=== PATIENT | male | born 1950 | race Caucasian/White ===

== ENCOUNTER 2022-12-03 11:06 | Observation (INO) | payer MEDICARE, SELFPAY ==
[2022-12-03] VITALS (38 sets, daily range): BP systolic 124–154; BP diastolic 64–91; PULSE 66–88; RESP 10–22; TEMP 35.7–37; O2SAT 93–100; BMI 27.5
--- NOTE | ~2022-12-03 | XR_ITS ---
XR chest 2V 12/03/2022 12:06 Indication: Chest pain Procedure: PA and lateral views of the chest Comparison: No prior studies for comparison. Findings: Heart size normal. No focal air space disease, pulmonary edema, pleural effusion or suspect ed pneumothorax. No acute osseous abnormality. Prominent bilateral nipple shadows. Impression: 1: No acute cardiopulmonary disease. Reviewed, dictated and finalized at location L. NER SUPERVISOR Impression: 1: No acute cardiopulmonary disease.
--- NOTE | 2022-12-03 11:11 | ECG_ITS ---
Measurements Intervals [place] Rate: 71 P: MS: 0 QRS: -78 QRSD: 154 T: 25 QT: 394 QTc: 428 Interpretive Statements SINUS RHYTHM WITH PREMATURE ATRIAL COMPLEXES LEFT AXIS DEVIATION [QRS AXIS < -30] RIGHT BUNDLE BRANCH BLOCK [120+ ms QRS DURATION, UPRIGHT V1, 40+ ms S IN I/aVL/V4/V5/V6] ANTEROSEPTAL MYOCARDIAL INFARCTION , OF INDETERMINATE AGE [40+ ms Q WAVE IN V1-V4] NO PREVIOUS ECG AVAILABLE FOR COMPARISON Electronically Signed On 12-03-2022 11:39:[address] MANAGER by Natacha Langston M.D.
[2022-12-03 11:25] LABS: Basophils Percent Auto 0.5 % (0.2-1.2); Eosinophils Absolute Auto 0.3 K/mm3 (0-0.3); Eosinophils Percent Auto 4.1 % (0-4.4); Hematocrit 37.7 % (42.0-52.0); Hemoglobin 13.1 g/dL (14.0-18.0); Immature Granulocyte Absolute 0.01 K/mm3 (0.00-0.031); Immature Granulocyte Percent A 0.1 % (0-0.5); Lymphocytes Absolute Auto 2.64 K/mm3 (0.9-3.2); Mean Corpuscular HGB Conc 34.7 g/dl (32-36); Mean Platelet Volume 9.4 fl (7.4-10.4); Monocytes Absolute Auto 0.5 K/mm3 (0.1-0.6); Monocytes Percent Auto 6.8 % (2.6-8.5); Neutrophils Absolute Auto 3.9 K/mm3 (1.3-6.7); Neutrophils Percent Auto 52.5 % (45.5-73.1); Platelet Count Result 193 k/mm3 (150-375); Red Cell Distribution Width 12.4 % (11.5-14.5); White Blood Count 7.3 K/mm3 (4.5-10.0)
[2022-12-03 11:35] LABS: Alanine Aminotransferase 20 U/L (6-50); Albumin Level 4.4 g/dL (3.5-5.1); Alkaline Phosphatase 62 U/L (38-126); Anion Gap 5 mmol/L (8-16); Aspartate Amino Transferase 23 U/L (17-59); Bilirubin,Total 0.8 mg/dL (0.2-1.3); Blood Urea Nitrogen 12 mg/dL (9-20); Calcium 9.3 mg/dL (8.4-10.2); Carbon Dioxide 27 mmol/L (22-30); Chloride 102 mmol/L (98-107); Estimated CRCL calculation 62 ml/min; Estimated Glomerular Filt Rate > 60; Glucose 201 mg/dL (65-110); Lipase 36 U/L (23-300); Potassium 3.9 mmol/L (3.4-5.0); Sodium 134 mmol/L (137-145)
[2022-12-03 11:42] LABS: INR 1.1; Prothrombin Time 13.9 Seconds (11.1-14.7)
[2022-12-03 11:43] LABS: Partial Thromboplastin Time 29.6 SECONDS (22.3-36.8)
[2022-12-03 11:46] LABS: Troponin I < 0.012 ng/mL (0.000-0.034)
--- NOTE | 2022-12-03 13:39 | ED.CHESTPAIN ---
HPI - Chest Pain General Chief Complaint: Chest Pain Stated Complaint: chest pain and pressure into neck Time Seen by Provider: 12/03/22 12:40 History of Present Illness HPI narrative: Patient is a 72-year-old male with a history of CAD status post 1 stent, hypertension, diabetes, hyperlipidemia presenting with chest pain. Patient states that he developed left-sided chest pressure that radiated into his left neck associated with severe lightheadedness and nausea. States that he was trying to move some furniture with his friend but he became so lightheaded that he had to sit down. The pain lasted for approximately 30 to 40 minutes so his friend made him come in for evaluation. Currently, the patient states that his pain has resolved. He denies shortness of breath. No recent fevers or chills, headache, numbness or weakness, abdominal pain, leg swelling. Related Data Home Medications Medication Instructions Recorded Confirmed aspirin 81 mg capsule,delayed 81 mg PO DAILY 12/03/22 12/03/22 release atorvastatin 80 mg tablet 80 mg PO HS 12/03/22 12/03/22 calcium carb-ergocalciferol (vit 2 tablet PO DAILY 12/03/22 12/03/22 D2) 600 mg calcium-200 unit tablet carvedilol 6.25 mg tablet 6.25 mg PO BID 12/03/22 12/03/22 emtricitabine 200 mg-tenofovir 1 tablet PO HS 12/03/22 12/03/22 alafenamide fumarate 25 mg tablet (Descovy) metformin 500 mg tablet,extended 1,000 mg PO BID 12/03/22 12/03/22 release 24 hr Allergies Allergy/AdvReac Type Severity Reaction Status Date / Time No Known Allergies Allergy Verified 12/03/22 15:41 Review of Systems Review of Systems: All systems reviewed & are unremarkable except as noted in HPI and below PMFSH Past Medical History Medical History Coronary artery disease Hypertension Kidney stones Type 2 diabetes mellitus Surgical History Surgical History History of cardiac catheterization History of cholecystectomy History of coronary artery stent placement Family History Family History Mother Dementia Father Hypertension Diabetes mellitus Depression Social History Social History Social History: Surrogate medical decision maker: Blayne Carlos, son. Code status: Full code. Smoking status: Never smoker Alcohol intake: never Substance use: never Lack of Transportation: No Lack of Food: Never True Current Housing: I Have Housing Concerned About Future Housing: No Difficulty Paying Gas/Electric Bills: No Difficulty Paying for Meds: No Currently Unemployed: No Education: Master's Degree or Higher Difficulty w/ Childcare or Family Care: No Additional living arrangements comments: Lives alone in [place]. 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 Spiritual care concerns: No Exam Narrative: GENERAL: Well-appearing, well-nourished, and in no acute distress. HEAD: Normocephalic, atraumatic. EYES: PERRLA and EOMI. ENT: Nares clear, no rhinorrhea or epistaxis. Mucous membranes moist. NECK: Supple. CHEST: Clear to auscultation. No respiratory distress. HEART: Regular rate and rhythm. No murmur heard. Normal peripheral pulses. ABDOMEN: Soft, nontender, nondistended EXTREMITIES: Normal range of motion. No edema. SKIN: Warm, dry, no rash. NEURO: No focal deficits. Alert and oriented x3. PSYCH: Normal mood and affect. Course Vital Signs Vital signs: Vital Signs Temperature 98.6 F 12/03/22 11:11 Pulse Rate 74 12/03/22 11:11 Respiratory Rate 14 12/03/22 11:11 Blood Pressure 138/91 H 12/03/22 11:11 Pulse Oximetry 93 12/03/22 11:11 Oxygen Delivery Room Air 12/03/22 11:11 Temperature 97.6 F 12/04/22 16:00 Pulse Rate 63 12/04/22 16:00 Respiratory Rate
--- NOTE | 2022-12-03 14:45 | PM.IMHP ---
H&P: HPI History of Present Illness Date/Time: 12/03/22 14:45 Chief Complaint: Chest pain. Narrative: This is a very pleasant 72-year-old male with coronary artery disease and history of stent about 4 to 5 years ago who presented to the emergency department via EMS for evaluation of chest pain which started about 20 minutes prior to arrival. Patient provides the following history. 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 Not long prior to arrival simply while standing he developed left anterior chest pressure radiating to the shoulder, neck, and jaw associated with some lightheadedness and nausea. He initially thought that perhaps his blood pressure had dropped as he had just been bending over to pick something up however the symptoms did not resolve within 30 minutes and he came in for evaluation. By the time he got to the emergency department the chest pressure had resolved without intervention and has not recurred. He has not had any issues with exertional chest pain or shortness of breath and reports that he has done quite a bit of heavy lifting and furniture moving recently, cleaning out his father's home who in September. Vital signs were stable on arrival to the emergency department. Troponin trends thus far: less than 0.012 --> 0.019 --> 0.032. EKG showed a sinus rhythm with PACs, left axis deviation, right bundle-branch block, and Q-waves in V1 through V4. He is being admitted in this setting for overnight monitoring and Cardiology consultation. Of note the patient had his cardiac catheterization done at [facility] and his advanced practice psychiatric nurse is affiliated with [facility]. He has not had a recent echocardiogram or stress test. Review of Systems Review of Systems: Twelve systems were reviewed. He denies fever, chills, and sweats. He broke a left upper tooth about a week or so ago and developed pain the day after, is currently on amoxicillin for possible infection though his symptoms have completely resolved. [facility] Past Medical History Medical History (Updated 12/03/22 @ 22:50 by Chelsea Kebede PA-C) Coronary artery disease Hypertension Kidney stones Type 2 diabetes mellitus Surgical History Surgical History (Updated 12/03/22 @ 22:45 by Chelsea Kebede PA-C) History of cardiac catheterization History of cholecystectomy History of coronary artery stent placement Family History Family History Mother Dementia Father Hypertension Diabetes mellitus Depression Social History Social History (Updated 12/03/22 @ 22:46 by Chelsea Kebede PA-C) Social History: Surrogate medical decision maker: Blayne Carlos, son. Code status: Full code. Smoking status: Never smoker Alcohol intake: never Substance use: never Lack of Transportation: No Lack of Food: Never True Current Housing: I Have Housing Concerned About Future Housing: No Difficulty Paying Gas/Electric Bills: No Difficulty Paying for Meds: No Currently Unemployed: No Education: Master's Degree or Higher Difficulty w/ Childcare or Family Care: No Additional living arrangements comments: Lives alone in [place]. 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 Spiritual care concerns: No Meds Home Medications and Allergies Home Medications Medication Instructions Recorded Confirmed Type aspirin 81 mg capsule,delayed 81 mg PO DAILY 12/03/22 12/03/22 History release atorvastatin 80 mg tablet 80 mg PO HS 12/03/22 12/03/22 History calcium carb-ergocalciferol (vit 2 tablet PO DAILY 12/03/22 12/03/22 History D2) 600 mg calcium-200 unit tablet carvedilol 6.25 mg tablet 6.25 mg PO BID 12/03/22 12/03/22 History emtricitabine 200 mg-tenofovir 1 tablet PO HS 12/03/22 12/03/22 History alafenamide fumarate
[2022-12-03 14:51] LABS: Troponin I 0.019 ng/mL (0.000-0.034)
--- NOTE | 2022-12-03 16:27 | ADMGEN ---
This patient, Demetrius Carlos, was admitted to IMU Room 203-01 at 1626. Patient/family oriented to hospital policies and general routines including ID bracelet, bed and alarms, visiting hours, pain management, procedures, bathroom and other care routines, personal items, smoking policy, room service/diet, and visiting hours. Information on how to activate the Rapid Response Team has been discussed. Patient/Family are encouraged to report perceived risks to care and to ask questions if they do not understand what they are told or what they should do.
[2022-12-03 16:39] LABS: Glucose Point of Care 151 mg/dl (65-105)
[2022-12-03 18:00] LABS: Troponin I 0.032 ng/mL (0.000-0.034)
[2022-12-03] MEDS: carvediloL 6.25 MG TABLET PO (20:25)
[2022-12-03] MEDS: ATORVASTATIN 40 MG TABLET 80 MG PO (20:25)
[2022-12-04] VITALS (10 sets, daily range): BP systolic 144–147; BP diastolic 60–85; PULSE 62–88; RESP 16–20; TEMP 36.3–36.7; O2SAT 95–99
[2022-12-04 05:01] LABS: Hematocrit 37.8 % (42.0-52.0); Mean Corpuscular HGB Conc 34.4 g/dl (32-36); Mean Corpuscular Hemoglobin 32.6 pg (26-34); Mean Corpuscular Volume 94.7 fl (80-100); Mean Platelet Volume 9.8 fl (7.4-10.4); Platelet Count Result 155 k/mm3 (150-375); Red Blood Count 3.99 M/mm3 (4.6-6.20); Red Cell Distribution Width 12.3 % (11.5-14.5); White Blood Count 5.3 K/mm3 (4.5-10.0)
[2022-12-04 05:16] LABS: Anion Gap 5 mmol/L (8-16); Blood Urea Nitrogen 11 mg/dL (9-20); Calcium 8.9 mg/dL (8.4-10.2); Carbon Dioxide 24 mmol/L (22-30); Chloride 104 mmol/L (98-107); Estimated CRCL calculation 68 ml/min; Estimated Glomerular Filt Rate > 60; Glucose 175 mg/dL (65-110); Magnesium 1.8 mg/dL (1.6-2.3); Potassium 3.9 mmol/L (3.4-5.0); Sodium 133 mmol/L (137-145)
[2022-12-04 05:21] LABS: Hemoglobin A1C 7.2 % (<5.7)
[2022-12-04] MEDS: carvediloL 6.25 MG TABLET PO (08:32)
[2022-12-04] MEDS: ASPIRIN 81 MG ENTERIC TABLET PO (08:33)
[2022-12-04] MEDS: ENOXAPARIN 40 MG/0.4 ML SYRINGE SUB-Q (08:34)
--- NOTE | 2022-12-04 08:57 | PM.CNCAR ---
Assessment and Plan Assessment and plan (1) Chest pain: Code(s): R07.9 - Chest pain, unspecified Status: Acute Assessment and Plan: Somewhat atypical with associated lightheadedness lasting 30-45 minutes then stopping spontaneously. Troponin a slight increase but yet remain negative without recurrent symptoms. Patient has a longstanding history of CAD with remote myocardial infarction and prior stent implantation proximally 4-5 years ago without interval symptoms or complications. Patient denies decline in activity tolerance, exertional dyspnea or chest pain at any point. EKG is abnormal but unchanged this hospitalization but without a prior for comparison. Patient feels very well and has no other complaints and is interested in being discharged to follow-up with his hand splitter at [facility] as an outpatient near his home. BP is stable but elevated. Discussed at great length plan of care. Initial plan was for noninvasive ischemic evaluation, however, as patient was not kept NPO and had already eaten unable to proceed at this time. at this time, no indication for invasive coronary angiography particular as patient is asymptomatic. Mildly discussed many options I recommended repeat troponin to establish trend as well as repeat ECG to assess for any evolutionary changes. I have also recommended a 2D echocardiogram to assess LV size/ function, wall motion abnormalities, valve pathology pulmonary pressures. If no unexpected LV dysfunction, troponin is down trending and remains negative and no new concerning ischemic changes by ECG along with asymptomatic status with ambulation regional for patient be discharged home later today follow up with his hand splitter back home in the next week for recommended ischemic evaluation. Given persistence elevation his blood pressure would recommend addition of ANA MARÍA-inhibitor therapy, continuation carvedilol. Patient is at elevated risk given his history of CAD, prior marked compression, diabetes mellitus. Check lipid panel. Recommendations to follow after review of echocardiogram. (2) Coronary artery disease: Code(s): I25.10 - Atherosclerotic heart disease of [place] coronary artery without angina pectoris Status: Acute Assessment and Plan: As above. Continue medical therapy with aspirin 81 mg daily, atorvastatin 80 mg at bedtime, carvedilol 6.25 mg twice daily. Will follow up with his hand splitter as an outpatient back home as outlined above. (3) Type 2 diabetes mellitus: Code(s): E11.9 - Type 2 diabetes mellitus without complications Status: Acute Assessment and Plan: Stable, continue metformin. Management per primary service. (4) Hypertension: Code(s): I10 - Essential (primary) hypertension Status: Acute Assessment and Plan: Add ANA MARÍA-I Lisinopril 5mg daily. History of Present Illness History of Present Illness Consult date/time: Date of service: 12/04/22 08:57 Requesting physician: Chelsea Kebede PA-C Consult reason: chest pain Reason For Visit: Chest Pain Narrative: Patient is a very pleasant 72-year-old male with past medical history significant for coronary disease with prior myocardial infarction approximately 5 years ago with stent implantation followed by [facility], type 2 diabetes mellitus, dyslipidemia who states he was in his usual state of health when he was helping a friend who owns an [employer] furniture. He states he was not doing anything particularly strenuous when he bent over stood up and then felt very lightheaded initially and went to sit down. He then developed discomfort described as a pressure-like sensation in left upper chest which radiated to his left neck and into his head and persisted for approximately 30-45 minutes. There is no improvement with position change or exacerbation with activity. He denied any change in activity, declnohemy
--- NOTE | 2022-12-04 09:41 | ECHO_ITS ---
Patient Info Name: Demetrius Carlos Age: 72 years : 1950 Gender: Male Ht: 70 in Wt: 192 lbs BSA: 2.09 m2 HR: 69 bpm BP: 147 / 85 mmHg Heart Rhythm: Sinus Rhythm Technical Quality: Fair Exam Date: 12/04/2022 1:53 PM Exam Location: [facility] Patient Status: Outpatient Admit Date: 12/03/2022 Staff Ordering Physician: Aldo Caceres MD Logistics Vice President: Ashlie Valadez RDCS Attending Provider: Demetrius Jesus MD Referring Physician: Nicki FRAGOSO; Exam Type: CA echo dop color flow w con Study Info Indications - cad R07.9 - Chest pain, unspecified Complete two-dimensional, color flow and Doppler transthoracic echocardiogram is performed with contrast to opacify the left ventricle and to improve the deliniation of the left ventricle endocardial borders. Contrast/Agitated Saline Contrast/Ag. Saline: Definity Amount: 3.00 ml Administered By: Ashlie Valadez RDCS Existing IV Access: Yes IV Access Condition: patent with no signs of infiltration Summary 1. Technically difficult study. Definity contrast administered. 2. Left ventricular chamber dimension is mildly enlarged. 3. Left ventricular systolic function is normal, estimated at 60% with hypokinesis of the apex and apical septal yao.. 4. There is mildly increased left ventricular wall thickness. 5. The left ventricular diastolic function is grade I diastolic dysfunction. 6. There is no thrombus visualized in the left ventricle. 7. There is no aortic valve stenosis. 8. There is trace mitral valve regurgitation. Left Ventricle Left ventricular chamber dimension is mildly enlarged. Left ventricular systolic function is normal, estimated at 60% with hypokinesis of the apex and apical septal yao.. There is mildly increased left ventricular wall thickness. The left ventricular diastolic function is grade I diastolic dysfunction. There is no thrombus visualized in the left ventricle. Technically difficult study. Definity contrast administered. Right Ventricle Right ventricular chamber dimension is normal. Right ventricular systolic function is normal. Left Atria Left atrial chamber dimension is normal. Right Atria Right atrial chamber dimension is normal. Aortic Valve The aortic valve is not well visualized. There is no aortic valve stenosis. There is no aortic valve regurgitation. Pulmonic Valve The pulmonic valve is not well visualized. Mitral Valve The mitral valve has thickened leaflets. There is trace mitral valve regurgitation. The mitral valve annulus is mildly calcified. Tricuspid Valve The tricuspid valve leaflets are normal. There is trace tricuspid valve regurgitation. Unable to assess PA systolic pressure due to poor spectral resolution of tricuspid regurgitant jet velocity. Pericardium/Pleural The pericardium appears normal. There is trivial pericardial effusion. Aorta The aortic root size at the sinus of Valsalva is normal. There is mild aortic atherosclerosis. Left Ventricular Outflow Tract Name Value Normal LVOT 2D LVOT Diameter 1.97 cm LVOT Doppler
--- NOTE | 2022-12-04 09:41 | ECG_ITS ---
Measurements Intervals [place] Rate: 61 P: [place]: 0 QRS: -73 QRSD: 150 T: -31 QT: 404 QTc: 410 Interpretive Statements SINUS RHYTHM SUPRAVENTRICULAR TRIGEMINY RIGHT BUNDLE BRANCH BLOCK LEFT ANTERIOR FASCICULAR BLOCK ANTEROSEPTAL INFARCT, AGE INDETERMINATE BORDERLINE T WAVE ABNORMALITY- INF/LAT LEADS ABNORMAL ECG COMPARED TO ECG 12-03-22 11:14 NO SIGNIFICANT CHANGES Electronically Signed On 12-04-2022 11:16:59 LINDERMAN OPERATOR by Tye Sousa D.O.
[2022-12-04 10:40] LABS: Troponin I < 0.012 ng/mL (0.000-0.034)
[2022-12-04 13:38] LABS: Cholesterol 77 mg/dL (0-200); HDL Direct 30 mg/dL
[2022-12-04] MEDS: lisinopriL 5 MG TABLET PO (13:39)
[2022-12-04 13:47] LABS: LDL Cholesterol Direct 34 mg/dL
[2022-12-04 13:57] LABS: Triglycerides 99 mg/dL (<150)
[2022-12-04] MEDS: PERFLUTREN LIPID MICROSPHERES 1.5 ML VIAL DILUTED TO 10 ML TOTAL VOLUME IV PUSH (14:00)
--- NOTE | 2022-12-04 14:28 | IVDEFINITY ---
Prior to administration of IV Definity the patient was educated on the risks and benefits of the imaging enhancing agent including potential adverse side effects. The patient verbalized understanding. Allergies were verified. No exclusion criteria were identified and at least one of the following inclusion criteria were met: 1) physician request, 2) patient technically difficult to image (per the [place] [employer] Echocardi[employer] guidelines of two or more segments not discernable within the apical view), or 3) questionable left ventricular function. ?
--- NOTE | 2022-12-04 16:10 | PM.DS ---
DS: Admitting Diagnosis Discharge Date 12/04/2022 Admitting Diagnosis chest pain DS: Discharge Diagnosis Discharge Diagnosis (1) Chest pain: Code(s): R07.9 - Chest pain, unspecified Status: Acute (2) Coronary artery disease: Code(s): I25.10 - Atherosclerotic heart disease of [place] coronary artery without angina pectoris Status: Acute (3) Type 2 diabetes mellitus: Code(s): E11.9 - Type 2 diabetes mellitus without complications Status: Acute (4) Hypertension: Code(s): I10 - Essential (primary) hypertension Status: Acute Plan The patient presented to the emergency department via EMS for evaluation of left anterior chest pain radiating to the jaw, shoulder, and neck this started about 20 minutes prior to arrival as per HPI. Labs, imaging, EKG, and all reports were personally reviewed. EKG showed a sinus rhythm with some PACs, right bundle branch block, and Q-waves in V1 through for. No previous EKGs were available for comparison. His initial troponin was negative. Given his cardiac history he is being admitted for close observation and Cardiology consultation. He was given aspirin 324 mg x 1 in the ED and he has not had any recurrent chest pain. Blood pressures have been reasonable. Hold metformin while hospitalized in case he requires a procedure with contrast. Initiate sliding scale insulin, Accu-Cheks, and hypoglycemic protocol. His home medications will be reviewed and resumed as appropriate. Medical decision making narrative History obtained from: Patient. History from independent sources: None. External chart review: None. New problems addressed: Chest pain. Chronic illnesses addressed: Coronary artery disease. Independent interpretation of studies: Labs, imaging, EKG, and all reports were personally reviewed. Shared decision making: Discussed with the patient the above findings and workup. He is being admitted for close monitoring to rule out acute coronary syndrome given cardiac history. Patient is in agreement. DS: Summary Hospital Course Reason for hospitalization: Chest pain. Narrative: This is a very pleasant 72-year-old male with coronary artery disease and history of stent about 4 to 5 years ago who presented to the emergency department via EMS for evaluation of chest pain which started about 20 minutes prior to arrival. Patient provides the following history. 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 Not long prior to arrival simply while standing he developed left anterior chest pressure radiating to the shoulder, neck, and jaw associated with some lightheadedness and nausea. He initially thought that perhaps his blood pressure had dropped as he had just been bending over to pick something up however the symptoms did not resolve within 30 minutes and he came in for evaluation. By the time he got to the emergency department the chest pressure had resolved without intervention and has not recurred. He has not had any issues with exertional chest pain or shortness of breath and reports that he has done quite a bit of heavy lifting and furniture moving recently, cleaning out his father's home who in September. Vital signs were stable on arrival to the emergency department. Troponin trends thus far: less than 0.012 --> 0.019 --> 0.032. EKG showed a sinus rhythm with PACs, left axis deviation, right bundle-branch block, and Q-waves in V1 through V4. He is being admitted in this setting for overnight monitoring and Cardiology consultation. 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 He has not had a recent echocardiogram or stress test. Hospital Course: The patient presented to the emergency department via EMS for evaluation of left anterior chest pain radiating to the jaw, shoulder, and n
[2022-12-04 17:21] LABS: Glucose Point of Care 197 mg/dl (65-105)
--- NOTE | 2022-12-04 17:28 | PC.NURSE ---
discharged home- f/u nuclear med with instructions and md appointment with dr. valentin scheduled and given to pt- d/c home no c/o pain
== END 2022-12-04 17:20 | disposition home or self-care (01) ==
LOC: ANHED 12:40 → ANHIMU 12-04 16:09
PROVIDERS: Emergency Medicine; Internal Medicine Cardiovascular Disease; Physician Assistant; Admitting Provider Chiropractor; Emergency Provider Emergency Medicine; Visit Provider Family Medicine
DX: R07.9 Chest pain, unspecified (principal); I25.10 Atherosclerotic heart disease of native coronary artery without angina pectoris; Z95.5 Presence of coronary angioplasty implant and graft; E11.9 Type 2 diabetes mellitus without complications; I11.9 Hypertensive heart disease without heart failure; R42 Dizziness and giddiness; R61 Generalized hyperhidrosis; R11.0 Nausea; I45.10 Unspecified right bundle-branch block; R94.31 Abnormal electrocardiogram [ECG] [EKG]; E78.5 Hyperlipidemia, unspecified; Z90.49 Acquired absence of other specified parts of digestive tract; Z87.442 Personal history of urinary calculi; Z79.82 Long term (current) use of aspirin; Z79.52 Long term (current) use of systemic steroids; Z79.84 Long term (current) use of oral hypoglycemic drugs; Z79.899 Other long term (current) drug therapy
CPT/HCPCS: 36415; 71046; 80048; 80053; 80061; 82948; 83036; 83690; 83735; 84484; 85025; 85027; 85610; 85730; 93005; 96372; 96374; 99285; A9270; C8929; G0378; J1650; Q9957